=== PATIENT | female | born 1985 | race African-American/Black ===

== ENCOUNTER 2017-10-20 11:56 | Day surgery (SDC) | payer BC ==
--- NOTE | 2017-10-20 12:33 | HP ---
[facility] - Chief Complaint Chief Complaint: Pt has a demise. History of Present Illness: The patient had an ob visit and the FH could not be heard and therefore a sonogram was done and revealed a demise at 8 weeks geatation. 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: Alzheimer's, CVA, Dementia, Migraine, Multiple Sclerosis, Peripheral Neuropathy, Parkinson's, Seizure, Syncope, TIA, Vertigo, Other Cardiovascular: No: AFIB, Aneurysm, Aortic Insufficiency, Aortic Stenosis, CAD, CHF, Deep Vein Thrombosis, HTN, Hyperlipdemia, [place], Mitral Insufficiency, Mitral Stenosis, Murmur, Pulmonary Hypertension, Other Pulmonary: No: Asthma, Bronchitis, Cancer, COPD, O2 Dependent, Pneumonia, Previously Intubated, Pulmonary Embolus, Pulmonary Fibrosis, Sleep Apnea, Other Gastrointestinal: No: Ascites, Cancer, Constipation, Crohn's Disease, Diverticulitis, Diverticulosis, Esophageal Varices, Gastritis, GERD, GI Bleed, Hemorrhoids, Hiatal Hernia, Inflamatory Bowel Disease, Irritable Bowel Disease, Pancreatitis, Peptic Ulcer Disease, Ulcerative Colitis, Other Hepatobiliary: No: Cirrhosis, Cholelithiasis, Cholecystitis, Choledocholithiasis , Hepatitis A, Hepatitis B, Hepatitis C, Other Renal/: No: Renal Failure, Renal Inusuff, BPH, Cancer, Hematuria, Hemodialysis , Neurogenic Bladder, Renal Calculi, UTI, Other Reproductive: No: Ectopic , Endometriosis, Fibroids, PID, Polycystic Ovary Syndrome, Postmenopausal, Other ...: Yes ...: 3 ...Para: 2 Heme/Onc: No: Anemia, B12 Deficiency, Bleeding Disorder, Cancer, Current Chemotherapy, Current Radiation Therapy, Hemochromatosis, Hypercoaguable State, Myeloproliferative Synd, Sickle Cell Disease, Sickle Cell Trait, Thrombocytopenia, Other Infectious Disease: No: AIDS, C-Diff, Herpes Zoster, HIV, MRSA, STD's, Tuberculosis, VREF, Other Musculoskeletal: No: Bursitis, Chronic low back pain, Hemiparesis, Hemiplegia, Osteoarthritis, Paraplegia, Other Rheumatology: No: Fibromyalgia, Gout, Lupus, Rheumatoid Arthritis, Sarcoidosis, Vasculitis, Other ENT: No: Allergic Rhinitis, Sinusitis, Other Endocrine: No: Booker's Disease, Myranda's Disease, Diabetes Insipidus, Diabetes Mellitus, Hyperparathyroidism, Hyperthyroidism, Hypothyroidism, Osteopenia, SIADH, Other Dermatology: No: Basal Cell, Cellulitis, Eczema, Melanoma, Psoriasis, Squamous Cell, Other Satellite Physical Exam - Physical Examination General Appearance: Well Nourished, Well Developed, Alert & Oriented x3 ENT: Clear, No Discharge, No masses Lung: Clear to auscultation Heart: Regular rate & rhythm, Normal S1, Normal S2 Breasts: Soft, Non-Tender, No masses bilaterally Abdomen: Soft, No tenderness, No CVA Extremities: No edema, No tenderness/swelling Pelvic Exam: Within normal limits External Genitalia, Within normal limits Vagina, Within normal limits Cervix, Within normal limits [place], Other Uterus (enlarged) Neurological: Intact, Alert, Oriented Satellite Impression/Plan - Impression/Plan Impression: demise Operative Procedure: Suction D/C Date to be Performed: 10/20/17
--- NOTE | 2017-10-20 12:36 | HP ---
[facility] - Chief Complaint Chief Complaint: This patient is here to treat a demise . History of Present Illness: This patient had a pelvic sonogram today because the FH could not be heard with the doppler. The sonogram showed a demise at 8 weeks gestation. 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, CVA, Dementia, Migraine, Multiple Sclerosis, Peripheral Neuropathy, Parkinson's, Seizure, Syncope, TIA, Vertigo, Other Cardiovascular: No: AFIB, Aneurysm, Aortic Insufficiency, Aortic Stenosis, CAD, CHF, Deep Vein Thrombosis, HTN, Hyperlipdemia, [place], Mitral Insufficiency, Mitral Stenosis, Murmur, Pulmonary Hypertension, Other Pulmonary: No: Asthma, Bronchitis, Cancer, COPD, O2 Dependent, Pneumonia, Previously Intubated, Pulmonary Embolus, Pulmonary Fibrosis, Sleep Apnea, Other Gastrointestinal: No: Ascites, Cancer, Constipation, Crohn's Disease, Diverticulitis, Diverticulosis, Esophageal Varices, Gastritis, GERD, GI Bleed, Hemorrhoids, Hiatal Hernia, Inflamatory Bowel Disease, Irritable Bowel Disease, Pancreatitis, Peptic Ulcer Disease, Ulcerative Colitis, Other Hepatobiliary: No: Cirrhosis, Cholelithiasis, Cholecystitis, Choledocholithiasis , Hepatitis A, Hepatitis B, Hepatitis C, Other Renal/: No: Renal Failure, Renal Inusuff, BPH, Cancer, Hematuria, Hemodialysis , Neurogenic Bladder, Renal Calculi, UTI, Other Reproductive: No: Ectopic , Endometriosis, Fibroids, PID, Polycystic Ovary Syndrome, Postmenopausal, Other
[2017-10-20 12:50] VITALS: BMI 30.5
[2017-10-20 12:56] LABS: INR 1.11 (0.82-1.09); PROTHROMBIN TIME (PATIENT) 12.5 SEC (9.98-11.88)
[2017-10-20 12:58] LABS: ACTIVATED PTT 27.6 SECONDS (26.9-34.4)
[2017-10-20] MEDS ORDERED: PROPOFOL 20 ML ONE ×2 (15:17)
[2017-10-20] MEDS ORDERED: ceFAZolin SODIUM 1 GM VIAL IVPB ONE (15:20)
[2017-10-20] MEDS ORDERED: ceFAZolin SODIUM 1 GM VIAL ONE (15:21)
[2017-10-20] MEDS ORDERED: KETOROLAC TROMETHAMINE 30 MG/1 ML VIAL ONE (15:27)
[2017-10-20 16:25] VITALS: PULSE 64
[2017-10-20] MEDS ORDERED: ONDANSETRON 4 MG/2 ML VIAL IVPUSH PRN (16:31)
[2017-10-20] MEDS ORDERED: ACETAMINOPHEN 325 MG TABLET (FP) PO PRN (16:31)
[2017-10-20 17:16] VITALS: BP 106/70; TEMP 97.8
--- NOTE | 2017-10-20 18:21 | OP ---
DATE OF OPERATION: 10/20/2017 PREOPERATIVE DIAGNOSIS: Missed , demise at 8 to 9 weeks. POSTOPERATIVE DIAGNOSIS: Missed , demise at 8 to 9 weeks. OPERATIVE PROCEDURE: Suction dilation and curettage. SURGEON: Nahomy Cardona M.D. ANESTHESIOLOGIST: Radha Duran D.O. ANESTHESIA: General anesthesia. ESTIMATED BLOOD LOSS: 10 mL. DESCRIPTION OF PROCEDURE: The patient was brought to the operating room, placed in a supine position. Given anesthesia by Dr. Duran. Placed in the lithotomy position. Prepped and draped in the usual manner for D and C. The patient was examined, uterus was noted to be approximately 8 weeks' size anterior, soft, adnexa negative. A speculum was placed into the vagina. The anterior lip of the cervix was grasped with a tenaculum. Rosario dilators were used to dilate the cervix. A number 8 straight curet was used for suction curettage. Products of conception were obtained and sent to pathology for analysis. Hemostasis was good. The patient was given Ancef intravenously as prophylaxis prior to the beginning of the operation. After the procedure was completed, the tenaculum was released from the anterior cervix. The speculum was removed from the vagina, and the patient was transferred to the recovery room with good vital signs and good hemostasis. NAHOMY CARDONA M.D. [id number]
--- NOTE | 2017-10-27 17:08 | PATH ---
Surgical Pathology Report Patient Name: CARMINE BENED[facility]. Rec. #: [id number] /Age/Gender: 1985 (Age: 32) / F Account: [id number] Location: [facility] SURGICAL Taken: 10/20/2017 Received: 10/23/2017 Reported: 10/27/2017 Physicians: Harris Cardona M.D. Specimen(s) Received PRODUCTS OF CONCEPTION Clinical History Missed Final Diagnosis UTERINE CONTENTS, SUCTION DILATATION AND CURETTAGE: IMMATURE CHORIONIC VILLI, DECIDUA, AND SOMATIC TISSUE. Electronically Signed Irena Riley M.D. Gross Description Received in formalin labeled "uterine contents," is an 8.0 x 7.2 x 0.9 cm aggregate of ejnkins-brown soft tissue fragments. Villous tissue is identified. No definite somatic tissue is identified. A sales representative printing paper portion is submitted in one cassette. /10/23/2017 saudi10/23/2017
== END 2017-10-20 17:10 | disposition home or self-care (01) ==
LOC: JASU-SURG 11:56 → JPSTO 11:56 → JASU-SURG 17:10
PROVIDERS: ATTEND Obstetrics & Gynecology
PROC: 10D17ZZ Extraction of Products of Conception, Retained, Via Natural or Artificial Opening (ICD-10-PCS; principal; 2017-10-20 16:30)
DX: O02.1 Missed abortion (principal); Z3A.08 8 weeks gestation of pregnancy
CPT/HCPCS: 36415; 85610; 85730; 86850; 86900; 86901; 88305-TC